=== PATIENT | female | born 1980 | race Caucasian/White ===

== ENCOUNTER 2017-07-01 20:51 | Emergency (ER) | payer SELFPAY ==
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
[2017-07-01] MEDS ORDERED: Diphtheria,Pertussis(Acell),Tetanus Vaccine 0.5 ML SDV IM ONE (21:16)
[2017-07-01] MEDS ORDERED: Lidocaine 1% 50 ML MDV INJECT ONE (22:52)
[2017-07-01] MEDS ORDERED: Acetaminophen 325 MG Tab PO ONE (23:06)
--- NOTE | 2017-07-02 09:03 | CT ---
Head CT Technique: Multiple axial sections through the brain were obtained. Intravenous contrast was not utilized. Comparison: Prior head CT exam of 06/15/12. Findings: Ventricles along with basal cisterns and sulci over the convexities are within normal limits for the patient's age. No abnormal parenchymal densities are seen. No evidence of intracranial hemorrhage. No midline shift or mass effect is seen. Bone window settings were reviewed which show no acute calvarial abnormality. Impression: 1. Nothing acute is identified on noncontrast head CT study. Diagnostic code #1 I agree with preliminary report from [facility], finalized at 07/01/17, 10:55 PM Central Time
== END 2017-07-02 00:18 | disposition home or self-care (01) ==
LOC: JD.ED 20:51
DX: S01.01XA Laceration without foreign body of scalp, initial encounter (principal); S01.81XA Laceration without foreign body of other part of head, initial encounter; S09.90XA Unspecified injury of head, initial encounter; Z23 Encounter for immunization; Y04.0XXA Assault by unarmed brawl or fight, initial encounter; F17.210 Nicotine dependence, cigarettes, uncomplicated
CPT/HCPCS: 12001; 12011; 70450; 90471; 90715; 99284; A9270; 12002; 12013; 99283-25

== ENCOUNTER 2022-06-22 18:20 | Emergency (ER) | payer SELFPAY ==
[2022-06-22] MEDS ORDERED: predniSONE 20 MG Tab PO ONE (19:07)
[2022-06-22] MEDS ORDERED: Albuterol 6.7 GM Inhaler INH ONE (19:07)
== END 2022-06-22 20:10 | disposition home or self-care (01) ==
LOC: JD.ED 18:20
DX: J45.901 Unspecified asthma with (acute) exacerbation (principal); Z91.048 Other nonmedicinal substance allergy status; Z72.0 Tobacco use
CPT/HCPCS: 71045; 94640; 99285; A9270; J7512; 99283

== ENCOUNTER 2023-09-22 11:00 | Emergency (ER) | payer SELFPAY | END 2023-09-22 13:00 | disposition home or self-care (01) | LOC: JD.ED 11:00 | DX: G56.03 Carpal tunnel syndrome, bilateral upper limbs (principal); M17.12 Unilateral primary osteoarthritis, left knee; J45.909 Unspecified asthma, uncomplicated; Z79.899 Other long term (current) drug therapy; Z91.048 Other nonmedicinal substance allergy status | CPT/HCPCS: 73564-26-LT; 73564-LT; 99283; 99284 ==

== ENCOUNTER 2024-09-22 15:09 | Emergency (ER) | payer SELFPAY ==
[2024-09-22] MEDS: Albuterol/Ipratropium 3.0-0.5 MG/3 ML Neb Soln NEB ONE ×2 (15:54→16:21)
[2024-09-22] MEDS: Dexamethasone 10 MG/ML SDV PO ONE (15:58)
== END 2024-09-22 17:10 | disposition home or self-care (01) ==
LOC: JD.ED 15:09
DX: J45.901 Unspecified asthma with (acute) exacerbation (principal); J06.9 Acute upper respiratory infection, unspecified; F17.200 Nicotine dependence, unspecified, uncomplicated; Z79.899 Other long term (current) drug therapy
CPT/HCPCS: 71045; 94640; 99283; J1100; J7620; A9270-GY